=== PATIENT | male | born 1970 | race Caucasian/White ===

== ENCOUNTER 2021-04-20 10:19 | Emergency (ER) | payer OTHER ==
[~2021-04-20] VITALS: Ht 175.3 cm; Wt 78.5 kg
[2021-04-20 10:39] VITALS: BP 134/101
[2021-04-20] MEDS ORDERED: PREDNISONE 10 M10 MG PO (11:16)
[2021-04-20] MEDS ORDERED: TRIAMCINOLONE430 GM TOP (11:16)
== END 2021-04-20 11:18 | disposition home or self-care (01) ==
LOC: ER 10:19
DX: L29.8 Other pruritus (principal); I25.2 Old myocardial infarction; I10 Essential (primary) hypertension; E78.5 Hyperlipidemia, unspecified